=== PATIENT | male | born 2000 | race Caucasian/White ===

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

== ENCOUNTER 2019-01-26 20:39 | Emergency (ER) | payer OTHER ==
[2019-01-26 21:30] VITALS: BP 104/55
[2019-01-26] MEDS ORDERED: OXYCODONE-ACETAMINOPHEN 5-325 MG TABLET PO ONE (22:25)
[2019-01-26] MEDS ORDERED: IBUPROFEN 800 MG TABLET PO ONE (22:25)
[2019-01-26] MEDS ORDERED: LIDOCAINE 1% INJ-PF (10 MG/ML) 30 ML SDV INJ ONE (22:27)
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
--- NOTE | 2019-01-26 23:24 | RADIOLOGY REPORT (SQ) ---
EXAM DESCRIPTION: [facility]: XR HAND 3 VIEWS BILATERAL Views: 3 views of each hand CLINICAL HISTORY: 18 years Male, injury COMPARISON: None. FINDINGS: Left: There is a subtle nondisplaced fracture extending along the distal shaft of the 5th metacarpal. No additional fractures. No hyperdense foreign bodies. Right: Negative for acute fracture, dislocation, or radiopaque foreign body. IMPRESSION: 1. Hairline fracture of the left 5th metacarpal
--- NOTE | 2019-01-26 23:24 | RADIOLOGY REPORT (SQ) ---
EXAM DESCRIPTION: XR CHEST 2 VIEWS COMPLETED DATE/TME: 01/26/2019 22:25 CLINICAL HISTORY: 18 years, Male, fall COMPARISON: None. NUMBER OF VIEWS: 2 TECHNIQUE: 2 view chest LIMITATIONS: None. FINDINGS: Heart size normal. Lungs clear. No pneumothorax IMPRESSION: Negative chest copyright 2011 [employer]- All Rights Reserved
--- NOTE | 2019-01-26 23:24 | RADIOLOGY REPORT (SQ) ---
EXAM DESCRIPTION: XR SHOULDER 2 OR MORE VIEWS COMPLETED DATE/TME: 01/26/2019 22:25 CLINICAL HISTORY: 18 years, Male, fall COMPARISON: None. NUMBER OF VIEWS: 3 TECHNIQUE: 3 view right shoulder LIMITATIONS: None. FINDINGS: Incomplete ossification centers. Negative for acute fracture or dislocation. IMPRESSION: Negative exam copyright 2010 [employer]- All Rights Reserved
[2019-01-27] MEDS ORDERED: LIDOCAINE 1%/EPINEPHRINE INJ 20 ML VIAL INJ ONE (00:41)
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
== END 2019-01-27 01:00 | disposition home or self-care (01) ==
LOC: ER 20:39
DX: S01.81XA Laceration without foreign body of other part of head, initial encounter (principal); S62.307A Unspecified fracture of fifth metacarpal bone, left hand, initial encounter for closed fracture; S60.512A Abrasion of left hand, initial encounter; S20.319A Abrasion of unspecified front wall of thorax, initial encounter; S40.211A Abrasion of right shoulder, initial encounter; V19.88XA Pedal cyclist (driver) (passenger) injured in other specified transport accidents, initial encounter; Z90.49 Acquired absence of other specified parts of digestive tract
CPT/HCPCS: 99283; 71046; 73030; 73130; 29125; 12013; J3490